=== PATIENT | male | born 1965 | race Caucasian/White ===

== ENCOUNTER → 2017-11-23 | Day surgery (SDC) | payer OTHER, MEDICARE ==
--- NOTE | 2017-11-23 16:27 | RADIOLOGY REPORT (SQ) ---
EXAM DESCRIPTION: ARTHRO SHOULDER; FLUORO/NEEDLE PLACEMENT COMPLETED DATE/TIME: 11/23/2017 3:47 pm REASON FOR STUDY: M75.101 UNSP ROTATR-CUFF TEAR/RUPTR OF RIGHT SHOULDER, NOT TRAUMA; M75.101 M75.101 UNSP ROTATR-CUFF TEAR/RUPTR OF RIGHT SHOULDER, NOT T COMPARISON: CT arthrogram 12/17/2013 FLUOROSCOPY TIME: 21 seconds 3 digital radiographic images saved to PACS. LIMITATIONS: None. PROCEDURE: Procedure, risks, benefits and alternative explained to patient who then gave written con sent. The posterior right shoulder was marked and a time-out was called for correct marking verifica tion. Posterior entry site marked using fluoroscopic guidance. Shoulder prepped and draped using st erile technique. Local anesthesia achieved using 6 mL of 1% lidocaine injection. 22 gauge spinal nee dle introduced into the joint space under direct fluoroscopic visualization. Non-ionic contrast inst illed to confirm intra-articular position. Additional dilute non-ionic contrast instilled. Needle r emoved and entry site covered with sterile bandage. No immediate complications noted. TECHNIQUE: Digital images acquired during fluoroscopy and stored on PACS. Patient immediately take n to the CT suite for additional imaging. INJECTION LOCATION: Right posterior glenohumeral joint CONTRAST TYPE AND AMOUNT: 1 mL of Isovue-300 followed by 12 mL of dilute ProHance saline mixture IMPRESSION: SUCCESSFUL NEEDLE PLACEMENT AND INJECTION FOR RIGHT SHOULDER CT ARTHROGRAM USING POSTERI OR APPROACH. COMMENT: Quality ID 145: Final reports for procedures using fluoroscopy that document radiation exp osure indices, or exposure time and number of fluorographic images (if radiation exposure indices are not available) TECHNICAL DOCUMENTATION: JOB ID: [id number] [employer]- All Rights Reserved Reading location - IP/workstation name: [email or web address]
--- NOTE | 2017-11-23 16:27 | RADIOLOGY REPORT (SQ) ---
EXAM DESCRIPTION: ARTHRO SHOULDER; FLUORO/NEEDLE PLACEMENT COMPLETED DATE/TIME: 11/23/2017 3:47 pm REASON FOR STUDY: M75.101 UNSP ROTATR-CUFF TEAR/RUPTR OF RIGHT SHOULDER, NOT TRAUMA; M75.101 M75.101 UNSP ROTATR-CUFF TEAR/RUPTR OF RIGHT SHOULDER, NOT T COMPARISON: CT arthrogram 12/17/2013 FLUOROSCOPY TIME: 21 seconds 3 digital radiographic images saved to PACS. LIMITATIONS: None. PROCEDURE: Procedure, risks, benefits and alternative explained to patient who then gave written con sent. The posterior right shoulder was marked and a time-out was called for correct marking verifica tion. Posterior entry site marked using fluoroscopic guidance. Shoulder prepped and draped using st erile technique. Local anesthesia achieved using 6 mL of 1% lidocaine injection. 22 gauge spinal nee dle introduced into the joint space under direct fluoroscopic visualization. Non-ionic contrast inst illed to confirm intra-articular position. Additional dilute non-ionic contrast instilled. Needle r emoved and entry site covered with sterile bandage. No immediate complications noted. TECHNIQUE: Digital images acquired during fluoroscopy and stored on PACS. Patient immediately take n to the CT suite for additional imaging. INJECTION LOCATION: Right posterior glenohumeral joint CONTRAST TYPE AND AMOUNT: 1 mL of Isovue-300 followed by 12 mL of dilute ProHance saline mixture IMPRESSION: SUCCESSFUL NEEDLE PLACEMENT AND INJECTION FOR RIGHT SHOULDER CT ARTHROGRAM USING POSTERI OR APPROACH. COMMENT: Quality ID 145: Final reports for procedures using fluoroscopy that document radiation exp osure indices, or exposure time and number of fluorographic images (if radiation exposure indices are not available) TECHNICAL DOCUMENTATION: JOB ID: [id number] [employer]- All Rights Reserved Reading location - IP/workstation name: [email or web address]
--- NOTE | 2017-11-23 16:34 | RADIOLOGY REPORT (SQ) ---
EXAM DESCRIPTION: CT RT UPPER EXTREMITY WITH COMPLETED DATE/TIME: 11/23/2017 4:12 pm REASON FOR STUDY: M75.101 UNSP ROTATR-CUFF TEAR/RUPTR OF RIGHT SHOULDER, NOT TRAUMA M75.101 UNSP RO TATR-CUFF TEAR/RUPTR OF RIGHT SHOULDER, NOT T COMPARISON: CT arthrogram 12/17/2013 TECHNIQUE: [facility]ial [facility] with reformatted oblique coronal and ob lique sagittal imaging windowed for bone and soft tissues. All CT scanners at this facility use dose modulation, iterative reconstruction, and/or weight based d osing when appropriate to reduce radiation dose to as low as reasonably achievable (ALARA). [facility]: Dose Right [facility]: CareDose [facility]: Dose Right [facility]: Teradose 4D [facility]: [employer] RADIATION DOSE: CT Rad equipment meets quality standard of care and radiation dose reduction techniq ues were employed. CTDIvol: 2.6 mGy. DLP: 61 mGy-cm. mGy. LIMITATIONS: None. FINDINGS: SOFT TISSUES: Lung apex clear. No soft tissue masses. No axillary adenopathy. BONY ARCHITECTURE: No fracture. No lytic or blastic lesions GLENOHUMERAL JOINT: No malalignment. Mild chondromalacia along the glenoid ACROMION AND AC JOINT: Type 2 acromion with mild acromioclavicular joint synovial thickening and bony spurring. Mild narrowing of the subacromial space. ROTATOR CUFF: A full-thickness anterior supraspinatus tendon tear is present at its attachment to the greater tuberosity, 1.5 x 1.5 cm in size. This is best shown on coronal image 42, axial image 25, a nd sagittal images 17-21. This is similar compared to 12/17/2013. Remainder of the rotator cuff is i ntact. GLENOID, LABRUM AND BICEPS: Intra-articular long head biceps tendon grossly intact. However, diffuse ly small anterior labrum is present from diffuse degeneration or tear best shown on axial images 29-3 8. No paralabral cyst. OTHER: Contrast is seen in the subacromial/subdeltoid bursa from the rotator cuff tear. IMPRESSION: Anterior supraspinatus tendon tear Diffusely abnormal small fragmented anterior glenoid labrum TECHNICAL DOCUMENTATION: JOB ID: [id number] Quality ID # 436: Final reports with documentation of one or more dose reduction techniques (e.g., Au tomated exposure control, adjustment of the mA and/or kV according to patient size, use of iterative reconstruction technique) 2010 [employer]- All Rights Reserved Reading location - IP/workstation name: [email or web address]
== END ==
LOC: RAD 15:03 → EDSTATUS 15:30
PROVIDERS: ATTEND Physician Assistant
DX: M75.101 Unspecified rotator cuff tear or rupture of right shoulder, not specified as traumatic (principal)
CPT/HCPCS: 73040; 77002

== ENCOUNTER → 2018-01-29 | Outpatient (CLI) | payer OTHER, MEDICARE ==
[2018-01-29 09:23] LABS: TRIGLYCERIDES 167 mg/dL (<150)
[2018-01-29 09:35] LABS: DIRECT LDL 147 mg/dL (<100)
[2018-01-29 09:38] LABS: VLDL CHOLESTEROL 33.4 mg/dL (10-31)
== END ==
LOC: OD 08:14
PROVIDERS: ATTEND Psychiatry & Neurology Psychiatry
DX: Z79.899 Other long term (current) drug therapy (principal)
CPT/HCPCS: 36415; 80061; 83036

== ENCOUNTER → 2019-03-13 | Outpatient (CLI) | payer OTHER, MEDICARE ==
--- NOTE | 2019-03-13 15:26 | RADIOLOGY REPORT (SQ) ---
EXAM DESCRIPTION: CT LUMBAR SPINE WITHOUT COMPLETED DATE/TIME: 03/13/2019 2:37 pm REASON FOR STUDY: M54.5 LOW BACK PAIN R10.2 PELVIC AND PERINEAL PAIN M54.5 LOW BACK PAIN COMPARISON: None. TECHNIQUE: Axial images acquired through the lumbar spine without intravenous contrast. Images revi ewed with lung, soft tissue and bone windows. Reconstructed coronal and sagittal MPR images reviewed . All images stored on PACS. All CT scanners at this facility use dose modulation, iterative reconstruction, and/or weight based d osing when appropriate to reduce radiation dose to as low as reasonably achievable (ALARA). [facility]: Dose Right [facility]: CareDose [facility]: Dose Right [facility]: Teradose 4D [facility]: [employer] RADIATION DOSE: CT Rad equipment meets quality standard of care and radiation dose reduction techniq ues were employed. CTDIvol: 28.6 mGy. DLP: 776 mGy-cm. mGy. LIMITATIONS: None. FINDINGS: SEGMENTATION: Normal. No transitional anatomy. ALIGNMENT: Normal. VERTEBRAL BODIES: No fractures. No dislocation. No acute findings. DISCS: Multilevel degenerative discs. Disk bulge with posterior element overgrowth resulting in spin al stenosis at L3-4 and L4-5. PEDICLES, TRANSVERSE PROCESSES: No fractures. No dislocation. No acute findings. FACETS, POSTERIOR ELEMENTS: No fractures. No dislocation. No spinal stenosis. HARDWARE: None in the spine. VISUALIZED RIBS: No fractures. SOFT TISSUES: No significant or acute finding in adjacent soft tissues. OTHER: No other significant finding. IMPRESSION: Degenerative disc disease. Spinal stenosis at L3-4 and L4-5. TECHNICAL DOCUMENTATION: JOB ID: [id number] Quality ID # 436: Final reports with documentation of one or more dose reduction techniques (e.g., Au tomated exposure control, adjustment of the mA and/or kV according to patient size, use of iterative reconstruction technique) 2010 [employer]- All Rights Reserved Reading location - IP/workstation name: [email or web address]
--- NOTE | 2019-03-13 15:29 | RADIOLOGY REPORT (SQ) ---
EXAM DESCRIPTION: CT PELVIS WITHOUT COMPLETED DATE/TIME: 03/13/2019 2:37 pm REASON FOR STUDY: R10.2 PELVIC AND PERINEAL PAIN R10.2 PELVIC AND PERINEAL PAIN M54.5 LOW BACK CHRIS N COMPARISON: None. TECHNIQUE: CT scan of the pelvis performed without intravenous or oral contrast. Images reviewed wi th soft tissue and bone windows. Reconstructed coronal and sagittal MPR images reviewed. All images stored on PACS. All CT scanners at this facility use dose modulation, iterative reconstruction, and/or weight based d osing when appropriate to reduce radiation dose to as low as reasonably achievable (ALARA). [facility]: Dose Right [facility]: CareDose [facility]: Dose Right [facility]: Teradose 4D [facility]: [employer] RADIATION DOSE: mGy. LIMITATIONS: None. FINDINGS: PELVIC BONES: There unusual lucencies in the medial iliac wings on the left abutting the S I joint. Possibly degenerative an intraosseous ganglion. Suggest further evaluation with bone scan. VISUALIZED SPINE: No acute findings. HIP(S): Degenerative changes of the hips with subchondral cysts of the acetabulum. PELVIC SOFT TISSUES: No significant findings. EXTRAPELVIC SOFT TISSUES: No significant findings. OTHER: No other significant finding. IMPRESSION: Unusual lucencies in the medial iliac wing on the left abutting the SI joint. Possibly degenerative but other etiologies in the differential. Suggest further evaluation bone scan. Degenerative changes of the hips mild. TECHNICAL DOCUMENTATION: JOB ID: [id number] Quality ID # 436: Final reports with documentation of one or more dose reduction techniques (e.g., Au tomated exposure control, adjustment of the mA and/or kV according to patient size, use of iterative reconstruction technique) 2010 [employer]- All Rights Reserved Reading location - IP/workstation name: [email or web address]
== END ==
LOC: RAD 13:54
PROVIDERS: ATTEND Physician Assistant
DX: R10.2 Pelvic and perineal pain (principal); M54.5 Low back pain; M51.36 Other intervertebral disc degeneration, lumbar region
CPT/HCPCS: 72131; 72192

== ENCOUNTER → 2019-04-10 | Outpatient (CLI) | payer OTHER, MEDICARE ==
--- NOTE | 2019-04-10 14:00 | RADIOLOGY REPORT (SQ) ---
EXAM DESCRIPTION: NM WHOLE BODY BONE SCAN COMPLETED DATE/TIME: 04/10/2019 1:21 pm REASON FOR STUDY: R10.2 PELVIC AND PERINEAL PAIN R10.2 PELVIC AND PERINEAL PAIN COMPARISON: CT pelvis 03/13/2019, CT lumbar spine 03/13/2019 CT arthrogram right shoulder 11/23/2017 RADIONUCLIDE AND DOSE: 21.6 millicuries Tc99m MDP. The route of agent administration: Intravenous. ADDITIONAL DRUGS AND DOSES: None. TECHNIQUE: Routine delayed images at 3 hours post radionuclide injection acquired of the bony skelet on including anterior and posterior whole-body projections and additional focused images as needed. LIMITATIONS: None. FINDINGS: BONES: No increased uptake worrisome for bony metastatic disease over the skeleton. Mild increased uptake is present at both shoulders in characteristic locations of osteoarthritis. No abnormal sacral or lumbar spine activity is present. No abnormal pelvic activity. Specifically, benign appearing intraosseous ganglions along the left and right innominate bones adjacent to the SI joints are not seen by bone scan. Bilateral patellar uptake, left knee medial compartment uptake from osteoarthritis. Post right total knee replacement with mild increased uptake adjacent to the prosthesis. Increased uptake in the bilateral mid feet in characteristic locations of osteoarthritis. KIDNEYS: Symmetric excretion without obstruction. OTHER: No other significant finding. IMPRESSION: No bone scan findings to explain history of pelvic and perineal pain. No increased upta ke over the bony pelvis worrisome for occult fracture. COMMENT: Quality measure 147: Current bone scan is compared with any available plain radiographs, p rior bone scans, and CT/MRI. TECHNICAL DOCUMENTATION: JOB ID: [id number] [employer]- All Rights Reserved Reading location - IP/workstation name: [email or web address]
== END ==
LOC: RAD 08:48
PROVIDERS: ATTEND Physician Assistant
DX: R10.2 Pelvic and perineal pain (principal)
CPT/HCPCS: 78306; A9561; Q9969

== ENCOUNTER → 2019-06-05 | Outpatient (CLI) | payer OTHER, MEDICARE ==
--- NOTE | 2019-06-05 10:08 | RADIOLOGY REPORT (SQ) ---
EXAM DESCRIPTION: CT RT UPPER EXTREMITY WITHOUT COMPLETED DATE/TIME: 06/05/2019 9:16 am REASON FOR STUDY: M25.531 PAIN IN RIGHT WRIST M25.531 PAIN IN RIGHT WRIST COMPARISON: Whole-body bone scan 04/10/2019 TECHNIQUE: Axial imaging performed through the right wrist with reformatted oblique coronal and obli que sagittal imaging windowed for bone and soft tissues. 3D shaded surface display imaging was rendered on an independent workstation. All CT scanners at this facility use dose modulation, iterative reconstruction, and/or weight based d osing when appropriate to reduce radiation dose to as low as reasonably achievable (ALARA). [facility]: Dose Right [facility]: CareDose [facility]: Dose Right [facility]: Teradose 4D [facility]: [employer] RADIATION DOSE: CT Rad equipment meets quality standard of care and radiation dose reduction techniq ues were employed. CTDIvol: 4.6 mGy. DLP: 111 mGy-cm. mGy. LIMITATIONS: None. FINDINGS: SOFT TISSUES: No soft tissue masses BONY ARCHITECTURE: No fracture. There is dense bony sclerosis throughout the scaphoid bone, with a 10 to 11 mm cyst within the mid 3r d of the scaphoid bone medullary space connecting to the fissure in the bony cortex at the scaphotrap ezium joint. These findings are best shown on coronal image 22/37. No fracture. RADIOCARPAL JOINT: Negative ulnar variance at the distal radioulnar joint. Radiocarpal joint space i s otherwise well maintained. No large ganglion cysts protruding off the radiocarpal joint are identi fied. INTERCARPAL AND METACARPOPHALANGEAL JOINTS: Normal alignment between the carpal bones, no widening at the scapholunate interval. There is joint space narrowing and mild bony spurring at the scaphotrape zium joint and 1st metacarpophalangeal joint best shown on coronal images 22-25. OTHER: 3D shaded surface display images yield no additional findings. 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 Surrounding scaphoid bone sclerosis. No fracture. TECHNICAL DOCUMENTATION: JOB ID: [id number] Quality ID # 436: Final reports with documentation of one or more dose reduction techniques (e.g., Au tomated exposure control, adjustment of the mA and/or kV according to patient size, use of iterative reconstruction technique) 2010 [employer] [facility]- All Rights Reserved Reading location - IP/workstation name: [email or web address]
== END ==
LOC: RAD 08:54
PROVIDERS: ATTEND Orthopaedic Surgery Hand Surgery
DX: M71.331 Other bursal cyst, right wrist (principal); M25.531 Pain in right wrist

== ENCOUNTER → 2020-02-02 | Day surgery (SDC) | payer OTHER, MEDICARE ==
--- NOTE | 2020-02-02 13:45 | RADIOLOGY REPORT (SQ) ---
EXAM DESCRIPTION: ARTHRO SHOULDER INJECTION; FLUORO/NEEDLE PLACEMENT IMAGES COMPLETED DATE/TIME: 02/02/2020 1:27 pm REASON FOR STUDY: M25.511 PAIN IN RIGHT SHOULDER M25.511 PAIN IN RIGHT SHOULDER COMPARISON: None. FLUOROSCOPY TIME: 0.2 minutes of fluoroscopy was used. 2 images saved to PACS. LIMITATIONS: None. PROCEDURE: Procedure, risks, benefits and alternative explained to patient who then gave written con sent. The right shoulder was marked and a time-out was called for correct marking verification. Pos terior entry site marked using fluoroscopic guidance. Shoulder prepped and draped using field service technician nique. Local anesthesia achieved using 1% lidocaine injection. 22 gauge spinal needle introduced int o the joint space under direct fluoroscopic visualization. Non-ionic contrast instilled to confirm i ntra-articular position. Additional dilute non-ionic contrast instilled. Needle removed and entry s ite covered with sterile bandage. No immediate complications noted. TECHNIQUE: Digital images acquired during fluoroscopy and stored on PACS. Patient immediately take n to the CT suite for additional imaging. INJECTION LOCATION: Posterior right shoulder. CONTRAST TYPE AND AMOUNT: 12 mL Omnipaque 300/ saline solution IMPRESSION: SUCCESSFUL NEEDLE PLACEMENT AND INJECTION FOR RIGHT SHOULDER CT ARTHROGRAM USING POSTERI OR APPROACH. COMMENT: Quality ID 145: Final reports for procedures using fluoroscopy that document radiation exp osure indices, or exposure time and number of fluorographic images (if radiation exposure indices are not available) TECHNICAL DOCUMENTATION: JOB ID: [id number] 2010 [employer]- All Rights Reserved Reading location - IP/workstation name: [email or web address] [id number]
--- NOTE | 2020-02-02 13:45 | RADIOLOGY REPORT (SQ) ---
EXAM DESCRIPTION: ARTHRO SHOULDER INJECTION; FLUORO/NEEDLE PLACEMENT IMAGES COMPLETED DATE/TIME: 02/02/2020 1:27 pm REASON FOR STUDY: M25.511 PAIN IN RIGHT SHOULDER M25.511 PAIN IN RIGHT SHOULDER COMPARISON: None. FLUOROSCOPY TIME: 0.2 minutes of fluoroscopy was used. 2 images saved to PACS. LIMITATIONS: None. PROCEDURE: Procedure, risks, benefits and alternative explained to patient who then gave written con sent. The right shoulder was marked and a time-out was called for correct marking verification. Pos terior entry site marked using fluoroscopic guidance. Shoulder prepped and draped using vascular technician nique. Local anesthesia achieved using 1% lidocaine injection. 22 gauge spinal needle introduced int o the joint space under direct fluoroscopic visualization. Non-ionic contrast instilled to confirm i ntra-articular position. Additional dilute non-ionic contrast instilled. Needle removed and entry s ite covered with sterile bandage. No immediate complications noted. TECHNIQUE: Digital images acquired during fluoroscopy and stored on PACS. Patient immediately take n to the CT suite for additional imaging. INJECTION LOCATION: Posterior right shoulder. CONTRAST TYPE AND AMOUNT: 12 mL Omnipaque 300/ saline solution IMPRESSION: SUCCESSFUL NEEDLE PLACEMENT AND INJECTION FOR RIGHT SHOULDER CT ARTHROGRAM USING POSTERI OR APPROACH. COMMENT: Quality ID 145: Final reports for procedures using fluoroscopy that document radiation exp osure indices, or exposure time and number of fluorographic images (if radiation exposure indices are not available) TECHNICAL DOCUMENTATION: JOB ID: [id number] 2010 [employer]- All Rights Reserved Reading location - IP/workstation name: [email or web address] [id number]
--- NOTE | 2020-02-02 16:32 | RADIOLOGY REPORT (SQ) ---
EXAM DESCRIPTION: CT RT UPPER EXTREMITY WITH IMAGES COMPLETED DATE/TIME: 02/02/2020 1:30 pm REASON FOR STUDY: M25.511 PAIN IN RIGHT SHOULDER M25.511 PAIN IN RIGHT SHOULDER COMPARISON: Right shoulder CT arthrogram 12/17/2013, 11/23/2017 TECHNIQUE: Post arthrogram Axial imaging performed through the [facility] with reformatted obliqu e coronal and oblique sagittal imaging windowed for bone and soft tissues. All CT scanners at this facility use dose modulation, iterative reconstruction, and/or weight based d osing when appropriate to reduce radiation dose to as low as reasonably achievable (ALARA). [facility]: Dose Right [facility]: CareDose [facility]: Dose Right [facility]: Teradose 4D [facility]: [employer] RADIATION DOSE: CT Rad equipment meets quality standard of care and radiation dose reduction techniq ues were employed. CTDIvol: 26.7 mGy. DLP: 757 mGy-cm. mGy. LIMITATIONS: None. FINDINGS: SOFT TISSUES: No masses or adenopathy. Right lung clear BONY ARCHITECTURE: No fracture or malalignment. No lytic or blastic lesions GLENOHUMERAL JOINT: No malalignment. No significant chondromalacia ACROMION AND AC JOINT: Type 2 acromion with mild narrowing of the subacromial space on coronal image 21. Mild acromioclavicular joint bony spurring. ROTATOR CUFF: There is a 15 mm diameter tear in the anterior aspect, distal supraspinatus tendon best shown on coronal image 22. No muscle atrophy. Mild thinning of the distal infraspinatus tendon without full-thickness tear Subscapularis intact GLENOID, LABRUM AND BICEPS: Intra-articular long head biceps tendon is intact. No gross superior lab ral tear. Sublabral foramen is present OTHER: No other significant finding. IMPRESSION: Tear anterior edge supraspinatus tendon similar compared previous studies TECHNICAL DOCUMENTATION: JOB ID: [id number] Quality ID # 436: Final reports with documentation of one or more dose reduction techniques (e.g., Au tomated exposure control, adjustment of the mA and/or kV according to patient size, use of iterative reconstruction technique) 2010 [employer]- All Rights Reserved Reading location - IP/workstation name: [email or web address]
== END ==
LOC: RAD 12:25
PROVIDERS: ATTEND Physician Assistant
DX: M25.511 Pain in right shoulder (principal); M75.101 Unspecified rotator cuff tear or rupture of right shoulder, not specified as traumatic
CPT/HCPCS: 23350; 77002